=== PATIENT | male | born 1995 | race African-American/Black ===

== ENCOUNTER 2020-03-14 10:56 | Inpatient (IN) | payer OTHER ==
[~2020-03-14] VITALS: Ht 172.7 cm; Wt 63.0 kg
[2020-03-14] MEDS ORDERED: NOVOLIN INSULIN SQ (11:11)
[2020-03-14] MEDS ORDERED: PANTOPRAZOLE SODIUM 40 MG VIAL IV ONE (11:30)
[2020-03-14] MEDS ORDERED: IV NORMAL SALINE 1000 ML BAG IV ONE ×2 (11:30→14:15)
[2020-03-14] MEDS ORDERED: ONDANSETRON 4 MG/2 ML VIAL IV ONE ×2 (11:30→12:00)
[2020-03-14] MEDS ORDERED: PANTOPRAZOLE SODIUM 40 MG VIAL ONE (11:38)
[2020-03-14] MEDS ORDERED: ONDANSETRON 4 MG/2 ML VIAL ONE ×2 (11:38→11:55)
--- NOTE | 2020-03-14 11:40 | NUR ---
PT IS IN ROOM #2B. DR NGUYỄN EVALUATED THE PT.
[2020-03-14 11:49] LABS: BASOPHILS # (AUTO) 0.1 K/uL (0.0-8.0); BASOPHILS % (AUTO) 0.5 % (0.0-2.0); HEMATOCRIT 37.6 % (36.7-47.1); HEMOGLOBIN 12.9 g/dL (12.5-16.3); LYMPHOCYTES # (AUTO) 0.9 K/uL (20.0-40.0); LYMPHOCYTES % (AUTO) 8.2 % (20.5-51.5); MEAN CORPUSCULAR HGB CONC 34 g/dL (32.5-36.3); MEAN CORPUSCULAR VOLUME 90.2 fL (73.0-96.2); MONOCYTES # (AUTO) 0.3 K/uL (2.0-10.0); MONOCYTES % (AUTO) 2.4 % (0.0-11.0); NEUTROPHILS # (AUTO) 10.1 K/uL (1.8-8.9); NEUTROPHILS % (AUTO) 88.9 % (38.5-71.5); PLATELET COUNT (AUTO) 328 K/uL (152-348); RED BLOOD CELL COUNT(AUTO) 4.17 MIL/uL (4.06-5.63); WHITE BLOOD COUNT (AUTO) 11.4 K/uL (3.6-10.2)
[2020-03-14 11:56] LABS: CREATININE 1.3 mg/dL (0.6-1.3)
[2020-03-14 12:02] LABS: BILIRUBIN,DIRECT 0.3 mg/dL (0.0-0.2); BILIRUBIN,TOTAL 0.9 mg/dL (0.2-1.0); TOTAL PROTEIN, SERUM 9.2 g/dL (6.4-8.2)
[2020-03-14] MEDS ORDERED: diphenhydrAMINE 50 MG/1 ML VIAL IV ONE (14:15)
[2020-03-14] MEDS ORDERED: METOCLOPRAMIDE HCL 10 MG/2 ML VIAL IV ONE (14:15)
[2020-03-14] MEDS ORDERED: diphenhydrAMINE 50 MG/1 ML VIAL ONE (14:36)
[2020-03-14] MEDS ORDERED: METOCLOPRAMIDE HCL 10 MG/2 ML VIAL ONE (14:37)
--- NOTE | 2020-03-14 16:38 | NUR ---
REPORT WAS GIVEN TO RN M/S. PT WAS TRANSFERED TO ROOM #323.
--- NOTE | 2020-03-14 17:00 | NUR ---
patient was Admitted from ER via [facility] with Diagnosis of Intractable vomiting under Dr. Valladares. Patient is awake, alert and verbally responsive. No signs of distress noted. No SOB. No complain of pain or discomfort. No complain of nausea/vomiting at this time. kept clean and comfortable. kept the call light within easy reach. Will continue to monitor.
[2020-03-14 18:12] VITALS: BP 142/84
[2020-03-14] MEDS ORDERED: MORPHINE SULFATE 2 MG/1 ML DISP.SYRIN IV PRN (19:30)
[2020-03-14] MEDS ORDERED: ACETAMINOPHEN 325 MG TABLET PO PRN (19:30)
[2020-03-14] MEDS ORDERED: DEXTROSE 50% 50 ML DISP.SYRIN IV PRN (19:30)
--- NOTE | 2020-03-14 19:30 | NUR ---
Received patient awake, lying in bed, and verbally responsive. No s/s of acute distress noted at this time. Pt denies SOB, pain, and N/V. Left AC IV patent and intact. Safety measures in place and will continue to monitor.
[2020-03-14] MEDS: IV 1/2NS 1000 ML 1,000 ML IV PRN (20:16)
[2020-03-14] MEDS: BLOOD SUGAR DIAGNOSTIC 1 EACH STRIP VI SCH (20:16)
[2020-03-14 20:21] VITALS: BP 101/56
[2020-03-15 05:30] VITALS: BP 112/57
[2020-03-15] MEDS: PANTOPRAZOLE SODIUM 40 MG TABLET.DR PO SCH (06:26)
[2020-03-15] MEDS: BLOOD SUGAR DIAGNOSTIC 1 EACH STRIP VI SCH ×3 (06:38→16:47)
[2020-03-15 06:53] LABS: BILIRUBIN,TOTAL 1.4 mg/dL (0.2-1.0); CREATININE 1.7 mg/dL (0.6-1.3); PHOSPHOROUS 3.8 mg/dL (2.5-4.9); POTASSIUM 3.8 mmol/L (3.5-5.1); TOTAL PROTEIN, SERUM 7.7 g/dL (6.4-8.2)
[2020-03-15 07:12] LABS: HEMATOCRIT 34.4 % (36.7-47.1); HEMOGLOBIN 11.8 g/dL (12.5-16.3); MEAN CORPUSCULAR VOLUME 90.9 fL (73.0-96.2); RED BLOOD CELL COUNT(AUTO) 3.79 MIL/uL (4.06-5.63); WHITE BLOOD COUNT (AUTO) 10.5 K/uL (3.6-10.2)
[2020-03-15 07:13] LABS: BASOPHILS % (AUTO) 0.3 % (0.0-2.0); EOSINOPHILS % (AUTO) 0.2 % (0.0-7.0); LYMPHOCYTES # (AUTO) 2.1 K/uL (20.0-40.0); LYMPHOCYTES % (AUTO) 19.9 % (20.5-51.5); MEAN CORPUSCULAR HEMOGLOBIN 31.1 uug (23.8-33.4); MEAN CORPUSCULAR HGB CONC 34 g/dL (32.5-36.3); MONOCYTES # (AUTO) 0.7 K/uL (2.0-10.0); MONOCYTES % (AUTO) 6.7 % (0.0-11.0); NEUTROPHILS # (AUTO) 7.7 K/uL (1.8-8.9); NEUTROPHILS % (AUTO) 72.9 % (38.5-71.5); PLATELET COUNT (AUTO) 302 K/uL (152-348)
--- NOTE | 2020-03-15 07:15 | NUR ---
PATIENT LAYING IN BED. AWAKE, ALERT AND ORIENTED X4. ON RA, NO S/S OF DISTRESS OR SOB. IV ON LEFT AC 22 G, FLUSHED AND PATENT. SKIN INTACT. PATIENT DENIES NAUSEA AT THIS TIME. WILL CONTINUE TO MONITOR.
[2020-03-15] MEDS: INSULIN REGULAR, HUMAN 300 UNIT/3 ML VIAL SQ PRN ×3 (07:53→16:49)
[2020-03-15] MEDS: ONDANSETRON 4 MG/2 ML VIAL IV PRN ×2 (09:01→21:12)
--- NOTE | 2020-03-15 09:05 | NUR ---
PATIENT COMPLAINS OF SEVERE NAUSEA. TWO EPISODES OF EMESIS. PATIENT GIVEN ZOFRAN FOR NAUSEA.
[2020-03-15] MEDS: IV 1/2NS 1000 ML 1,000 ML IV PRN (10:02)
[2020-03-15 11:30] VITALS: BP 145/62
--- NOTE | 2020-03-15 12:23 | NUR ---
PATIENT COMPLAINS OF NAUSEA AND HAD ANOTHER EPISODE OF EMESIS - 100 CC OF DARK GREEN EMESIS. PATIENT UNABLE TO TOLERATE FOOD. NOTIFIED MD.
--- NOTE | 2020-03-15 12:40 | NUR ---
DR PRINGLE ORDERED CONTINUE CURRENT IV FLUIDS - 0.45 NS AT 70 CC/HR, AND CONTINUE INSULIN COVERAGE. PATIENT PLACED ON NPO PER MD ORDER.
[2020-03-15 16:00] VITALS: BP 109/67
--- NOTE | 2020-03-15 16:15 | NUR ---
PATIENT LAYING IN BED. VERBALIZE UNDERSTANDING OF NPO STATUS. DENIES ANY MORE EMESIS OR NAUSEA AT THIS TIME. WILL CONTINUE TO MONITOR.
[2020-03-15] MEDS: METOCLOPRAMIDE HCL 10 MG/2 ML VIAL IV PRN (17:18)
--- NOTE | 2020-03-15 17:27 | NUR ---
PATIENT COMPLAINS OF NAUSEA, NO EMESIS AT THIS TIME. GIVEN PRN NAUSEA MEDICATION. PATIENT ADVISED TO KEEP LEFT ARM EXTENDED FOR IV POSITIONING D/T IV PUMP NOTING IV OCCLUSION. IV PATENT AND FLUSHING.
--- NOTE | 2020-03-15 18:30 | NUR ---
PATIENT'S IV DISLODGED. PATIENT REQUESTED FOR ANOTHER SHOWER. PATIENT HAD A SHOWER THIS MORNING, BUT STILL WALKED HIMSELF TO THE SHOWER UNACCOMPANIED. PATIENT AAOX4, WITH STEADY GAIT. UNABLE TO RESTART IV. WILL ENDORSE TO PM SHIFT.
--- NOTE | 2020-03-15 19:30 | NUR ---
Received patient lying in bed under the covers. AAOx4. No s/s of acute distress noted at this time. Patient denied SOB and pain. Pt c/o nausea and will administer medication per orders. Safety measures in place and will continue to monitor.
[2020-03-15 20:00] VITALS: BP 143/76
[2020-03-15] MEDS ORDERED: DEXTROSE 50% 50 ML DISP.SYRIN IV PRN (21:15)
[2020-03-16] VITALS: BP 150/86
[2020-03-16 00:11] VITALS: BP 148/79
[2020-03-16] MEDS: BLOOD SUGAR DIAGNOSTIC 1 EACH STRIP VI SCH ×3 (00:13→12:10)
[2020-03-16] MEDS: INSULIN REGULAR, HUMAN 300 UNIT/3 ML VIAL SQ PRN ×3 (00:18→12:11)
[2020-03-16] MEDS ORDERED: PROCHLORPERAZINE EDISYLATE 10 MG/2 ML VIAL IV ONE (02:00)
--- NOTE | 2020-03-16 02:00 | NUR ---
Pt c/o hiccups that have not resolved with non-pharmacological attempts. Spoke with Dr. Russo and placed one time order for Compazine. Will administer and continue to monitor. Addendum: 03/16/20 at 0612 by ROSA BILL RN Pt refused med. Stated hiccups subsided and no longer needed medication for it
[2020-03-16] MEDS ORDERED: PROCHLORPERAZINE EDISYLATE 10 MG/2 ML VIAL ONE (02:19)
[2020-03-16 04:00] VITALS: BP 129/60
[2020-03-16] MEDS: ONDANSETRON 4 MG/2 ML VIAL IV PRN (04:48)
[2020-03-16] MEDS: PANTOPRAZOLE SODIUM 40 MG TABLET.DR PO SCH (06:00)
[2020-03-16] MEDS: METOCLOPRAMIDE HCL 10 MG/2 ML VIAL IV PRN (06:00)
[2020-03-16 07:10] LABS: BASOPHILS % (AUTO) 0.1 % (0.0-2.0); HEMATOCRIT 36.6 % (36.7-47.1); HEMOGLOBIN 12.4 g/dL (12.5-16.3); LYMPHOCYTES # (AUTO) 1.6 K/uL (20.0-40.0); LYMPHOCYTES % (AUTO) 11.2 % (20.5-51.5); MEAN CORPUSCULAR HEMOGLOBIN 30.8 uug (23.8-33.4); MEAN CORPUSCULAR HGB CONC 34 g/dL (32.5-36.3); MEAN CORPUSCULAR VOLUME 90.9 fL (73.0-96.2); MONOCYTES % (AUTO) 6.8 % (0.0-11.0); NEUTROPHILS # (AUTO) 11.6 K/uL (1.8-8.9); NEUTROPHILS % (AUTO) 81.9 % (38.5-71.5); PLATELET COUNT (AUTO) 322 K/uL (152-348); RED BLOOD CELL COUNT(AUTO) 4.02 MIL/uL (4.06-5.63); WHITE BLOOD COUNT (AUTO) 14.1 K/uL (3.6-10.2)
[2020-03-16 07:33] LABS: BILIRUBIN,TOTAL 1.9 mg/dL (0.2-1.0); CREATININE 1.7 mg/dL (0.6-1.3); MAGNESIUM 2.2 mg/dL (1.8-2.4); PHOSPHOROUS 5.4 mg/dL (2.5-4.9); POTASSIUM 3.7 mmol/L (3.5-5.1); TOTAL PROTEIN, SERUM 8.6 g/dL (6.4-8.2)
--- NOTE | 2020-03-16 10:00 | NUR ---
Pt very persistent that he's feeling better and can tolerate water. Insisted on getting water. Informed Dr. Valladares, and ordered for full liquid diet. Will give water and monitor tolerance. Pt asleep at this time
[2020-03-16] MEDS: IV 1/2NS 1000 ML 1,000 ML IV PRN (11:34)
[2020-03-16 15:43] VITALS: BP 133/81
--- NOTE | 2020-03-16 15:55 | NUR ---
Change of AMA time- Pt left AMA, explained risks and benefits, verbalized understanding. Pt signed AMA form and belongings list, all accounted for. Pt left unit ambulatory and picked up by friend via private car. AOx4, on RA denied SOB or distress at this time. Per pt, tolerated full liquid lunch earlier with no nausea and vomiting. Removed IV on right FA, no bleeding. made aware
== END 2020-03-16 15:55 | disposition left against medical advice (07) | DRG 249 ==
LOC: ER 10:56 → MEDSURG3 15:32
PROVIDERS: ADMIT Internal Medicine; ATTEND Internal Medicine
DX: A08.4 Viral intestinal infection, unspecified (principal); E11.65 Type 2 diabetes mellitus with hyperglycemia; Z79.4 Long term (current) use of insulin; F99 Mental disorder, not otherwise specified; Z91.14 Patient's other noncompliance with medication regimen; N17.0 Acute kidney failure with tubular necrosis
CPT/HCPCS: 36415; 70030-TC; 83690; 83735; 84100; 85025; 93005; A4663; C9113; G0378; J0780; J1200; J1815; J2405; J2765; J3490; J7030

== ENCOUNTER 2021-02-20 12:52 | Inpatient (IN) | payer OTHER ==
[~2021-02-20] VITALS: Ht 157.5 cm; Wt 68.5 kg
[~2021-02-20 12:52] MED LIST: NOVOLIN INSULIN SQ
[2021-02-20] MEDS ORDERED: IV NORMAL SALINE 1000 ML BAG IV ONE ×2 (13:30→14:45)
[2021-02-20 14:14] LABS: HEMATOCRIT 36.8 % (36.7-47.1); MEAN CORPUSCULAR HEMOGLOBIN 31.3 uug (23.8-33.4); MEAN CORPUSCULAR VOLUME 90.5 fL (73.0-96.2); PLATELET COUNT (AUTO) 301 K/uL (152-348)
[2021-02-20] MEDS ORDERED: ONDANSETRON 4 MG/2 ML VIAL ONE (14:14)
[2021-02-20] MEDS ORDERED: ONDANSETRON 4 MG/2 ML VIAL IV ONE (14:15)
--- NOTE | 2021-02-20 14:26 | NUR ---
Patient is resting comfortably on gurney with eyes closed,, pending urine specimen and blood tests' results.
[2021-02-20 14:28] LABS: BILIRUBIN,DIRECT 0.3 mg/dL (0.0-0.2); BILIRUBIN,TOTAL 1.2 mg/dL (0.2-1.0); CREATININE 1.9 mg/dL (0.6-1.3); POTASSIUM 3.7 mmol/L (3.5-5.1); TOTAL PROTEIN, SERUM 9.8 g/dL (6.4-8.2)
[2021-02-20] MEDS ORDERED: INSULIN REGULAR, HUMAN 300 UNIT/3 ML VIAL SQ ONE (14:45)
[2021-02-20] MEDS ORDERED: INSULIN REGULAR, HUMAN 300 UNIT/3 ML VIAL ONE (14:49)
[2021-02-20] MEDS ORDERED: DEXTROSE 50% 50 ML DISP.SYRIN ONE (17:05)
--- NOTE | 2021-02-20 17:19 | NUR ---
Patient is resting comfortably on gurney with his black hoodie sweater over his face. No vomiting seen since IV Zofran was given. Patient denies nausea and said that he feels better. PATIENT IS PAIN FREE AT THIS TIME. Per Dr Laguna, this patient is for admission to telemetry secondary to his acute kidney injury.
[2021-02-20] MEDS ORDERED: DEXTROSE 50% 50 ML DISP.SYRIN IV ONE (17:30)
--- NOTE | 2021-02-20 17:56 | NUR ---
Patient will go to 3rd floor telemetry as soon as the COVID test is resulted.
[2021-02-20 18:15] VITALS: BP 144/74
[2021-02-20] MEDS ORDERED: DEXTROSE 50% 50 ML DISP.SYRIN IV PRN (20:00)
[2021-02-20] MEDS ORDERED: INSULIN REGULAR, HUMAN 300 UNITS/3 ML VIAL SQ PRN (20:00)
[2021-02-20] MEDS ORDERED: INSULIN REGULAR, HUMAN 300 UNIT/3 ML VIAL SQ PRN (20:00)
[2021-02-20] MEDS ORDERED: Z GUARD REMEDY PASTE 57 GM TUBE TOP PRN (20:00)
[2021-02-20] MEDS ORDERED: ZOLPIDEM 5 MG TABLET PO PRN (20:00)
[2021-02-20] MEDS ORDERED: ACETAMINOPHEN 325 MG TABLET PO PRN (20:00)
[2021-02-20] MEDS ORDERED: MAGNESIUM HYDROXIDE 30 ML LIQUID UDC PO PRN (20:00)
[2021-02-20 20:03] VITALS: BP 131/71
[2021-02-20] MEDS: ONDANSETRON 4 MG/2 ML VIAL IV PRN (20:52)
[2021-02-20] MEDS: BLOOD SUGAR DIAGNOSTIC 1 EACH STRIP VI SCH (20:54)
--- NOTE | 2021-02-20 21:00 | NUR ---
PATIENT ALERT ORIENTED, NO SOB NO CHEST PAIN PATIENT ON TELE MONITOR SINUS RHYTHM AT THIS TIME. PATIENT DRANK CRANBERRY JUICE BUT VOMIT IT. PATIENT GIVEN ZOFRAN VIA IV, DENIES PAIN, REFUSED TO EAT ANYTHING NOW, CONT TO MONITOR.
[2021-02-20] MEDS: IV 1/2NS 1000 ML 1,000 ML IV PRN (21:14)
[2021-02-21] VITALS: BP 143/94
--- NOTE | 2021-02-21 02:03 | NUR ---
PATIENT WAS INSTRUCTED NOT DRINK FLUIDS AT THIS TIME, DUE TO EPISODE OF VOMITING AGAIN APPROX 300CC, PATIENT IV HYDRATION TOLERATE WELL, WILL MEDICATED AGAIN FOR VOMITING. CONT TO MONITOR.
[2021-02-21] MEDS: ONDANSETRON 4 MG/2 ML VIAL IV PRN ×3 (03:32→23:10)
[2021-02-21 04:05] VITALS: BP 136/75
[2021-02-21] MEDS: IV 1/2NS 1000 ML 1,000 ML IV PRN (04:26)
[2021-02-21] MEDS: PANTOPRAZOLE SODIUM 40 MG TABLET.DR PO SCH (06:03)
[2021-02-21] MEDS: BLOOD SUGAR DIAGNOSTIC 1 EACH STRIP VI SCH ×5 (06:17→23:10)
--- NOTE | 2021-02-21 06:17 | NUR ---
PATIENT STILL HAS EPISODE OF VOMITING BROWNISH COLOR FLUIDS IN MODERATE AMOUNT, CONT TO INSTRUCT TO NOT TAKE ANYTHING AT THIS TIME. PATIENT GIVEN ZOFRAN IV WITH EFFECTIVE RESULTS, PATIENT TOLERATE LITTLE SIPS OF WATER TAKE A PILLL
[2021-02-21 09:30] LABS: MEAN CORPUSCULAR HEMOGLOBIN 31.4 uug (23.8-33.4); MEAN CORPUSCULAR VOLUME 92.5 fL (73.0-96.2); PLATELET COUNT (AUTO) 279 K/uL (152-348)
[2021-02-21 09:50] LABS: CREATININE 2.5 mg/dL (0.6-1.3); PHOSPHOROUS 5.1 mg/dL (2.5-4.9); POTASSIUM 3.5 mmol/L (3.5-5.1)
[2021-02-21 10:32] LABS: THYROID STIMULATING HORMONE 1.021 mIU/mL (0.358-3.740)
[2021-02-21 11:17] VITALS: BP 134/85
--- NOTE | 2021-02-21 11:30 | NUR ---
DR FIGUEREDO NOTIFIED OF VOMITING EPISODES X 2 DURING SHIFT SO FAR. FIRST EPISODE AT 0740, BREAKFAST HELD. AT 1030, ZOFRAN 4 MG IV PUSH GIVEN, AND PO TRIAL DONE WITH WATER, BUT PATIENT HAD ANOTHER EPISODE OF VOMITING JUST NOW. RECEIVED ORDERS FOR NPO/CHANGE FLUIDS TO D5 1/2 NS/CHANGE REGULAR INSULIN SLIDING SCALE TO Q6H. ALSO NOTIFIED ABOUT URINE TESTS ORDERED BY NEPHRO TEAM, SHE AGREED TO ADD URINE DRUG SCREEN.
[2021-02-21 11:40] LABS: *BILIRUBIN,URIN 1+ (NEGATIVE); *BLOOD, URINE 2+ (NEGATIVE); *COLOR,URINE YELLOW (YELLOW); *KETONES,URINE 3+ (NEGATIVE); *UROBILINOGEN,URINE 0.2 E.U./dl (NORMAL); LEUKOCYTE ESTERASE ,URINE NEGATIVE (NEGATIVE); NITRITE, URINE NEGATIVE (NEGATIVE); UGLUCOSE 2+ (NEGATIVE)
[2021-02-21] MEDS ORDERED: DEXTROSE 50% 50 ML DISP.SYRIN IV PRN (12:15)
[2021-02-21 12:25] LABS: *AMPHETAMINE, URINE NEGATIVE (NEGATIVE); *CANNABINOID, URINE POSITIVE (NEGATIVE); *COCCAINE, URINE NEGATIVE (NEGATIVE); *OPIATE, URINE NEGATIVE (NEGATIVE); *PHENCYCLIDINE SCREEN,URINE NEGATIVE (NEGATIVE)
[2021-02-21] MEDS: IV D5 1/2 NS 1000 ML 1,000 ML IV PRN ×2 (12:34→22:00)
[2021-02-21] MEDS: INSULIN REGULAR, HUMAN 300 UNIT/3 ML VIAL SQ PRN ×3 (12:46→23:18)
--- NOTE | 2021-02-21 13:00 | NUR ---
DR FIGUEREDO AT BEDSIDE FOR EVALUATION. SHE IS AWARE OF BLOOD SUGAR OF 415 AT NOON. COVERED WITH REGULAR INSULIN OF 15 UNITS SUBQ ORDERED. NO OTHER ORDERS. D5 1/2 NS 125CC/HR.
[2021-02-21 14:34] LABS: *CREATININE,URINE 164.6 mg/dL (30-125)
[2021-02-21 14:35] LABS: *URINE TOTAL PROTEIN RANDOM 102.9 mg/dL (<150/24HR)
[2021-02-21 15:12] LABS: *CLARITY,URINE SLIGHTLY HAZY (CLEAR); BACTERIA,URINE FEW /HPF (NONE SEEN); SQUAMOUS EPITHELIAL CELL,UR FEW /HPF (NONE SEEN)
[2021-02-21 15:46] VITALS: BP 131/68
--- NOTE | 2021-02-21 19:00 | NUR ---
ALERT ORIENTED, NO SOB NO CHEST PAIN, SINUS RHYTHM SINUS TACHY. REMAINS NPO, CONT TO MONITOR EPISODES OF VOMITING.
[2021-02-21 20:10] VITALS: BP 153/90
[2021-02-22] VITALS: BP 117/69
[2021-02-22 04:10] VITALS: BP 122/70
[2021-02-22 06:19] LABS: HEMATOCRIT 34.3 % (36.7-47.1); MEAN CORPUSCULAR VOLUME 91.6 fL (73.0-96.2); PLATELET COUNT (AUTO) 276 K/uL (152-348)
[2021-02-22] MEDS: PANTOPRAZOLE SODIUM 40 MG TABLET.DR PO SCH (06:28)
[2021-02-22] MEDS: BLOOD SUGAR DIAGNOSTIC 1 EACH STRIP VI SCH ×3 (06:28→17:23)
[2021-02-22] MEDS: INSULIN REGULAR, HUMAN 300 UNIT/3 ML VIAL SQ PRN ×3 (06:29→17:36)
[2021-02-22 06:39] LABS: BILIRUBIN,TOTAL 1.4 mg/dL (0.2-1.0); CREATININE 2.2 mg/dL (0.6-1.3); POTASSIUM 3.5 mmol/L (3.5-5.1); TOTAL PROTEIN, SERUM 7.8 g/dL (6.4-8.2)
--- NOTE | 2021-02-22 06:56 | NUR ---
PATIENT REMAINS NPO, BLOOD SUGAR CHECK DONE, BS STILL ELEVATED. PATIENT STILL HAVE EPISODE OF VOMITING, APPROX 200CC, CLEAR BROWN COLOR LIQUIDS, TELE MONITOR SINUS RYTHM SINUS TACHY.
[2021-02-22] MEDS: IV D5 1/2 NS 1000 ML 1,000 ML IV PRN ×2 (07:16→22:00)
--- NOTE | 2021-02-22 08:00 | NUR ---
RECEIVED PATIENT IN BED ASLEEP BUT EASILY AROUSABLE ON ROUNDS HE IS ALERT AND ORIENTED DENIES PAIN OR DISCOMFORTS AT THIS TIME REMAIN ON IVF ORDERED WITH NO S/S OF INFILTERATION ON SITE REMAIN NOTHING BY MOUTH ORDERED REINSTRUCTED CALL LIGHTS AND HIS PERSONAL ARE WITHIN EASY REACH AT THIS TIME WILL CONTINUE TO OBSERVE.
--- NOTE | 2021-02-22 11:00 | NUR ---
PATIENT DISCONNECTED HIS IV AND REMOVED HIS HEPLOCK HIMSELF WITHOUT ASKING THE NURSE WAS FOUND IN THE SHOWER ROOM TAKING SHOWER REINFORCED THAT HE NEEDED TO ASK THE NUSE TO DISCONNECT HIM IN THE FUTURE TO ENSURE ASEPTIC TECHNIQUE IN DISCONNECTING HIS IV TO PREVENT INFECTION AND HE EXPRESSED UNDERSTANDING.
[2021-02-22 11:40] VITALS: BP 136/91
[2021-02-22] MEDS: ONDANSETRON 4 MG/2 ML VIAL IV PRN ×2 (13:20→23:49)
[2021-02-22 15:08] VITALS: BP 155/98
--- NOTE | 2021-02-22 16:30 | NUR ---
IV SITE INFILTERATED REINSERTED TO HIS RIGHT WRIST VERY HARD STICK PATIENT INSTRUCTED TO REFRAIN FROM DISCONNECTING HIS IV TO AVOID INFILTERATION PROBLEMS AND HE EXPRESSED UNDERSTANDING.
--- NOTE | 2021-02-22 18:01 | NUR ---
RESTING IN BED SEEN ONE EPISODE OF EMESIS BUT HE STATED THAT HE VOMITED 2 TIMES I DID NOT SEE THE SECOND ONE AND WAS NOT NOTIFIED UNTIL 1320 DURING HIS SECOND EMESIS AND I MEDICATED HIM WITH ZOFRAN ORDERED.
[2021-02-22 20:00] VITALS: BP 184/118
[2021-02-22] MEDS: METOCLOPRAMIDE HCL 10 MG/2 ML VIAL IV PRN (20:02)
[2021-02-22] MEDS: hydrALAZINE HCL 20 MG/1 ML VIAL IV PRN (20:04)
[2021-02-22 21:15] VITALS: BP 155/65
--- NOTE | 2021-02-22 22:30 | NUR ---
pt's bp elevated referred to Dr Walsh and ordered hydralazineIV push; she also ordered Reglan IVP if zofran not effective.
[2021-02-23] VITALS: BP 162/91
--- NOTE | 2021-02-23 00:15 | NUR ---
pt's blood sugar was 510; stat glucose 579; referred to DR Sethi; he changed Regular Insulin from moderate scale to aggressive scale and added Lantus 16 units; pt will continue his IVF with dextrose per Dr Sethi;
[2021-02-23] MEDS ORDERED: INSULIN GLARGINE,HUM 300 UNITS/3 ML CARTRIDGE SQ SCH ×2 (00:30→21:00)
[2021-02-23] MEDS ORDERED: DEXTROSE 50% 50 ML DISP.SYRIN IV PRN ×2 (00:30→17:00)
[2021-02-23 01:00] VITALS: BP 158/89
[2021-02-23] MEDS ORDERED: INSULIN GLARGINE,HUM 300 UNITS/3 ML CARTRIDGE SQ ONE (01:30)
[2021-02-23 04:00] VITALS: BP 128/75
[2021-02-23] MEDS: INSULIN REGULAR, HUMAN 300 UNIT/3 ML VIAL SQ PRN ×3 (06:02→20:36)
[2021-02-23] MEDS: BLOOD SUGAR DIAGNOSTIC 1 EACH STRIP VI SCH ×5 (06:03→20:40)
[2021-02-23] MEDS: PANTOPRAZOLE SODIUM 40 MG TABLET.DR PO SCH (06:17)
[2021-02-23 06:33] LABS: HEMATOCRIT 35.8 % (36.7-47.1); MEAN CORPUSCULAR HEMOGLOBIN 30.8 uug (23.8-33.4); MEAN CORPUSCULAR VOLUME 90.5 fL (73.0-96.2); PLATELET COUNT (AUTO) 281 K/uL (152-348)
[2021-02-23 06:42] LABS: CREATININE 2.1 mg/dL (0.6-1.3); PHOSPHOROUS 3.7 mg/dL (2.5-4.9); POTASSIUM 3.4 mmol/L (3.5-5.1)
[2021-02-23] MEDS: METOCLOPRAMIDE HCL 10 MG/2 ML VIAL IV PRN ×2 (08:34→18:26)
--- NOTE | 2021-02-23 08:35 | NUR ---
RECEIVED PATIENT IN BED AWAKE ALERT AND ORIENTED CONTINUES TO C/O NAUSEA MEDICATED WITH REGLAN ORDERED AT THIS TIME.REMAIN ON IVF WITH NO S/S OF INFILTERATION ON SITE NO S/S OF HYPO/HYPERGLYCEMIC REACTIONS AT THIS TIME PATIENT REMAINS NPO REINSTRUCTED AND EXPRESSED UNDERSTANDING.CALL LIGHTS AND HIS PERSONAL BELONGINGS ARE WITHIN EASY REACH MADE COMFORTABLE WILL CONTINUE TO OBSERVE.
[2021-02-23] MEDS: IV D5 1/2 NS 1000 ML 1,000 ML IV PRN (10:50)
[2021-02-23 11:14] VITALS: BP 135/87
[2021-02-23] MEDS: POTASSIUM CHLORIDE 50 ML IV SCH ×2 (13:32→15:03)
--- NOTE | 2021-02-23 13:44 | NUR ---
MID LINE GAUGE 18 PLACED TO HIS RIGHT UPPER ARM ORDERED POTASSIUM REPLACEMENT IN PROGRESS ORDERED LEVEL IS 3.4
[2021-02-23 15:59] VITALS: BP 173/100
[2021-02-23] MEDS: hydrALAZINE HCL 20 MG/1 ML VIAL IV PRN (16:24)
--- NOTE | 2021-02-23 16:59 | NUR ---
PATIENT SEEN AND EXAMINED BY DR CAPUTO WITH NEW ORDERS AND NOTED.
[2021-02-23] MEDS ORDERED: INSULIN REGULAR, HUMAN 300 UNITS/3 ML VIAL SQ PRN (17:00)
[2021-02-23] MEDS: IV LACTATED RINGERS SOLUTION 1,000 ML IV PRN ×2 (17:04→20:30)
--- NOTE | 2021-02-23 18:34 | NUR ---
PATIENT HAS BEEN IN THE SHOWER FOR AN HOUR AND A HALF AND NOR FINALLY IN HIS ROOM AND IVF CONNECTED REGLAN GIVEN HE STATED HIS STOMACH IS ACHING AND DOES NOT FEEL GOOD WILL CONTINUE TO OBSERVE.
[2021-02-23 20:00] VITALS: BP 141/93
--- NOTE | 2021-02-23 21:00 | NUR ---
PATIENT ALERT ORIENTED, NO SOB NO CHEST PAIN, NO EPISODE OF VOMITING AT THIS TIME, OFFERED LIQUID FOOD BUT REFUSED, PATIENT HAS EPISODE OF SHAKING FOR FEW SECONDS, BUT ITS A CONTROLLED ONE AND RESTLESS IN BED, CONT TO MONITOR.
--- NOTE | 2021-02-23 23:53 | NUR ---
PATIENT HAS BEEN IN THE SHOWER FOR HOURS, ENCOURAGE PATIENT TO SHORTEN HIS SHOWER BECAUSE OF THE IV HYDRATION, AND WE DON'T WANT HIS SUGAR TO DROP, DUE TO NPH INSULIN. PATIENT R UPPER ARM MIDLINE CLOGGED UNABLE TO FLUSH. INSERTED NEW IV LINE. INSTRUCTED PATIENT TO TAKE THE IV SITE CAUSE WE DON'T WANT TO DISLOGE THIS ONE AGAIN.
[2021-02-24] VITALS: BP 142/90
[2021-02-24 04:00] VITALS: BP 155/70
[2021-02-24] MEDS: IV LACTATED RINGERS SOLUTION 1,000 ML IV PRN (04:57)
--- NOTE | 2021-02-24 05:57 | NUR ---
PATIENT ALERT ORIENTED, NO SOB NO CHEST PAIN, TELE MONITOR SINUS RHYTHM SINUS TACHY. PATIENT HAS NO COMPLAIN OF PAIN, PATIENT BLOOD SUGAR WAS 29 GIVEN IV DEXTROSE , RECHECK SUGAR 120. PATIENT IV MIDLINE IS CLOGGED AGAIN, ABLE TO REINSERT PERIPHERAL IV ON LEFT HAND. PATIENT REQUESTING TO SHOWER, STATING IT HIM FEEL GOOD, EXPLAINED THAT IV WILL BE DISLODGED AGAIN OR WILL NOT WORK DUE TO HE TOOK LONG SHOWER AND DUE TO VENDING HIS ARMS. PATIENT UNCOOPERATIVE WITH CARE, DONT WANT TO LISTEN. NOTIFY CHARGE NURSE.
[2021-02-24] MEDS: PANTOPRAZOLE SODIUM 40 MG TABLET.DR PO SCH (06:12)
[2021-02-24] MEDS: BLOOD SUGAR DIAGNOSTIC 1 EACH STRIP VI SCH ×2 (06:13→11:44)
[2021-02-24 06:38] LABS: HEMATOCRIT 34.1 % (36.7-47.1); MEAN CORPUSCULAR HEMOGLOBIN 31.5 uug (23.8-33.4); MEAN CORPUSCULAR VOLUME 90.6 fL (73.0-96.2); PLATELET COUNT (AUTO) 263 K/uL (152-348)
[2021-02-24 06:56] LABS: CREATININE 1.7 mg/dL (0.6-1.3); PHOSPHOROUS 3.7 mg/dL (2.5-4.9)
[2021-02-24 06:57] LABS: POTASSIUM 2.8 mmol/L (3.5-5.1)
--- NOTE | 2021-02-24 08:00 | NUR ---
PT IN BED RESTING, ON ROOM AIR, NO SIGNS OF DISTRESS, NO REPORTS OF PAIN. PT AMBULATORY, BRP, PT STATES "HOT SHOWERS HELP WITH THE REFLUX". PT ON TELE MONITOR, SINUS TACHY, CALL LIGHT WITHIN REACH, BED LOW AND LOCKED, WILL CONTINUE TO MONITOR.
[2021-02-24] MEDS ORDERED: METO-295 PO (08:28)
[2021-02-24] MEDS ORDERED: POTASSIUM CHLORIDE 20 MEQ TAB.PRT.SR PO ONE (08:30)
[2021-02-24] MEDS ORDERED: hydrALAZINE HCL 20 MG/1 ML VIAL IV PRN (08:30)
[2021-02-24] MEDS ORDERED: IV NS 1000 ML 1,000 ML IV ONE (08:45)
[2021-02-24] MEDS: POTASSIUM CHLORIDE 50 ML IV SCH ×2 (09:20→11:11)
--- NOTE | 2021-02-24 09:30 | NUR ---
DC tele monitor per MD order. will continue with plan of care.
--- NOTE | 2021-02-24 10:00 | NUR ---
SPOKE WITH MOM VIA FACETIME, GAVE UPDATES, PT MAIN C/O ACID REFLUX WITH A LOT OF DISCOMFORT, MADE AWARE. WILL FOLLOW THROUGH WITH ORDERS.
[2021-02-24] MEDS ORDERED: PANT40TA2 PO (11:06)
[2021-02-24] MEDS ORDERED: CALCIUM CARBONATE 500 MG TAB.CHEW PO ONE (11:15)
[2021-02-24 11:17] VITALS: BP 173/101
[2021-02-24] MEDS: INSULIN REGULAR, HUMAN 300 UNIT/3 ML VIAL SQ PRN (12:02)
[2021-02-24] MEDS ORDERED: SUCR1ORA PO (12:02)
--- NOTE | 2021-02-24 13:24 | NUR ---
PT DC'D HOME WITH ALL BELONGINGS, PAPERWORK IN HAND. DISCHARGE INSTRUCTIONS AND EDUCATION GIVEN TO PT. PT AMBULATORY, ESCORTED DOWN TO CAR BY NURSE. PT VITALS WNL, ON ROOM AIR, NO SIGNS OF DISTRESS, NO REPORTS OF PAIN, PT GIVEN PRESCRIPTION. ALL EXIT CARE INSTRUCTIONS GIVEN, PT VERBALIZED UNDERSTANDING.
== END 2021-02-24 13:25 | disposition home or self-care (01) | DRG 48 ==
LOC: ER 12:54 → TELE3 17:13 → MEDSURG3 02-24 08:45
PROVIDERS: ADMIT Student in an Organized Health Care Education/Training Program; ATTEND Registered Nurse
PROC: B546ZZA Ultrasonography of Right Subclavian Vein, Guidance (ICD-10-PCS; principal; 2021-02-23)
PROC: 05H533Z Insertion of Infusion Device into Right Subclavian Vein, Percutaneous Approach (ICD-10-PCS; principal; 2021-02-23)
DX: E11.43 Type 2 diabetes mellitus with diabetic autonomic (poly)neuropathy (principal); N17.0 Acute kidney failure with tubular necrosis; E87.0 Hyperosmolality and hypernatremia; E83.39 Other disorders of phosphorus metabolism; E11.65 Type 2 diabetes mellitus with hyperglycemia; D72.829 Elevated white blood cell count, unspecified; K31.84 Gastroparesis; E83.52 Hypercalcemia; E86.0 Dehydration; Z20.822 Contact with and (suspected) exposure to COVID-19; Z91.19 Patient's noncompliance with other medical treatment and regimen; Z79.4 Long term (current) use of insulin
CPT/HCPCS: 36415; 71045; 74018; 76770; 83605; 83690; 84100; 84156; 84300; 84443; 85025; A4663; G0378; J0360; J1815; J2405; J2765; J3480; J3490; J7030; J7120

== ENCOUNTER 2021-08-21 13:33 | Inpatient (IN) | payer OTHER ==
[~2021-08-21] VITALS: Ht 172.7 cm; Wt 59.0 kg
[~2021-08-21 13:33] MED LIST changes: +METO-295 PO; +PANT40TA2 PO; +SUCR1ORA PO
[2021-08-21 15:27] LABS: HEMATOCRIT 47.4 % (36.7-47.1); MEAN CORPUSCULAR HEMOGLOBIN 30.5 uug (23.8-33.4); MEAN CORPUSCULAR VOLUME 91.8 fL (73.0-96.2); PLATELET COUNT (AUTO) 282 K/uL (152-348)
[2021-08-21 15:43] LABS: CARBON DIOXIDE 29 mmol/L (21-32); CHLORIDE 87 mmol/L (98-107); CREATININE 5.7 mg/dL (0.6-1.3); POTASSIUM 3.9 mmol/L (3.5-5.1); UREA NITROGEN, BLOOD 59 mg/dL (7-18)
[2021-08-21 16:08] LABS: *BILIRUBIN,URIN 1+ (NEGATIVE); *BLOOD, URINE 2+ (NEGATIVE); *CLARITY,URINE TURBID (CLEAR); *COLOR,URINE YELLOW (YELLOW); *KETONES,URINE TRACE (NEGATIVE); *UROBILINOGEN,URINE 0.2 E.U./dl (NORMAL); LEUKOCYTE ESTERASE ,URINE NEGATIVE (NEGATIVE); NITRITE, URINE NEGATIVE (NEGATIVE); UGLUCOSE 3+ (NEGATIVE)
[2021-08-21 16:16] LABS: ALANINE AMINOTRANSFERASE 36 U/L (16-63); ALKALINE PHOSPHATASE 137 U/L (50-136); ASPARTATE AMINOTRANSFERASE 50 U/L (15-37); BILIRUBIN,DIRECT 0.3 mg/dL (0.0-0.2); BILIRUBIN,TOTAL 1.4 mg/dL (0.2-1.0); LIPASE 38 U/L (73-393); TOTAL PROTEIN, SERUM 10.8 g/dL (6.4-8.2)
[2021-08-21 16:25] LABS: GLUCOSE 603 mg/dL (74-106)
[2021-08-21 16:31] LABS: COARSE GRANULAR CASTS,URINE 0-3 /LPF
[2021-08-21 16:36] LABS: CALCIUM OXALATE CRYSTALS,UR MODERATE /HPF (NONE SEEN)
[2021-08-21 16:37] LABS: BACTERIA,URINE FEW /HPF (NONE SEEN); SQUAMOUS EPITHELIAL CELL,UR FEW /HPF (NONE SEEN); URINE AMORPHOUS URATE MODERATE /HPF
[2021-08-21 16:38] LABS: MUCUS,URINE FEW /LPF (0-FEW)
[2021-08-21] MEDS ORDERED: IV NS 1000 ML 1,000 ML IV ONE (16:45)
[2021-08-21] MEDS ORDERED: INSULIN REGULAR, HUMAN 300 UNIT/3 ML VIAL IV ONE (16:45)
[2021-08-21] MEDS ORDERED: ACETAMINOPHEN 325 MG TABLET PO PRN (19:15)
[2021-08-21] MEDS ORDERED: INSULIN REGULAR, HUMAN 300 UNIT/3 ML VIAL SQ PRN (19:15)
[2021-08-21] MEDS ORDERED: DEXTROSE 50% 50 ML DISP.SYRIN IV PRN (19:15)
[2021-08-21] MEDS ORDERED: MAGNESIUM HYDROXIDE 30 ML LIQUID UDC PO PRN (19:15)
[2021-08-21] MEDS ORDERED: REMEDY ESSENTIAL ZINC PASTE 113 GM TP PRN (19:15)
[2021-08-21] MEDS: IV NS 1000 ML 1,000 ML IV SCH (22:58)
[2021-08-21 23:00] VITALS: BP 156/84
[2021-08-21] MEDS: INSULIN GLARGINE,HUM 300 UNITS/3 ML CARTRIDGE SQ SCH (23:27)
[2021-08-22] MEDS ORDERED: INSULIN REGULAR, HUMAN 300 UNIT/3 ML VIAL SQ PRN (02:30)
[2021-08-22] MEDS ORDERED: DEXTROSE 50% 50 ML DISP.SYRIN IV PRN ×2 (02:30→11:30)
[2021-08-22] MEDS: IV NS 1000 ML 1,000 ML IV SCH ×4 (03:58→21:02)
[2021-08-22 04:00] VITALS: BP 155/80
[2021-08-22] MEDS ORDERED: BLOOD SUGAR DIAGNOSTIC 1 EACH STRIP VI SCH ×2 (06:00)
[2021-08-22 06:51] LABS: HEMATOCRIT 39.4 % (36.7-47.1); MEAN CORPUSCULAR HEMOGLOBIN 30.2 uug (23.8-33.4); MEAN CORPUSCULAR VOLUME 90.1 fL (73.0-96.2); PLATELET COUNT (AUTO) 280 K/uL (152-348)
[2021-08-22 07:25] LABS: CREATININE 3.8 mg/dL (0.6-1.3); MAGNESIUM 2.2 mg/dL (1.8-2.4); PHOSPHOROUS 6.2 mg/dL (2.5-4.9); POTASSIUM 3.8 mmol/L (3.5-5.1)
[2021-08-22] MEDS ORDERED: SUCRALFATE 1 G/10 ML LIQUID UDC PO SCH ×2 (09:00)
[2021-08-22] MEDS ORDERED: INSULIN REGULAR, HUMAN 300 UNITS/3 ML VIAL SQ PRN (11:30)
[2021-08-22] MEDS: BLOOD SUGAR DIAGNOSTIC 1 EACH STRIP VI SCH ×3 (11:43→20:57)
[2021-08-22 12:00] VITALS: BP 134/85
[2021-08-22] MEDS: METOPROLOL TARTRATE 25 MG TABLET PO SCH ×2 (15:37→20:53)
[2021-08-22 16:12] VITALS: BP 158/89
[2021-08-22] MEDS: ONDANSETRON 4 MG/2 ML VIAL IV PRN (17:36)
[2021-08-22] MEDS: SUCRALFATE 1 G TABLET PO SCH (18:02)
[2021-08-22 20:29] VITALS: BP 142/96
[2021-08-22] MEDS: INSULIN GLARGINE,HUM 300 UNITS/3 ML CARTRIDGE SQ SCH (20:59)
[2021-08-23 00:16] VITALS: BP 111/67
[2021-08-23] MEDS: IV NS 1000 ML 1,000 ML IV SCH ×3 (03:35→16:00)
[2021-08-23 04:43] VITALS: BP 130/70
[2021-08-23] MEDS: SUCRALFATE 1 G TABLET PO SCH ×4 (06:32→20:28)
[2021-08-23] MEDS: ONDANSETRON 4 MG/2 ML VIAL IV PRN (06:35)
[2021-08-23] MEDS: BLOOD SUGAR DIAGNOSTIC 1 EACH STRIP VI SCH ×4 (06:42→20:28)
[2021-08-23 07:16] LABS: HEMATOCRIT 37.2 % (36.7-47.1); MEAN CORPUSCULAR HEMOGLOBIN 31.1 uug (23.8-33.4); MEAN CORPUSCULAR VOLUME 90.8 fL (73.0-96.2); PLATELET COUNT (AUTO) 252 K/uL (152-348)
[2021-08-23 07:17] LABS: CREATININE 1.9 mg/dL (0.6-1.3); POTASSIUM 3.3 mmol/L (3.5-5.1)
[2021-08-23] MEDS: METOPROLOL TARTRATE 25 MG TABLET PO SCH ×2 (08:09→20:28)
[2021-08-23 09:12] LABS: *BILIRUBIN,URIN NEGATIVE (NEGATIVE); *BLOOD, URINE 2+ (NEGATIVE); *CLARITY,URINE CLEAR (CLEAR); *COLOR,URINE YELLOW (YELLOW); *KETONES,URINE 1+ (NEGATIVE); LEUKOCYTE ESTERASE ,URINE NEGATIVE (NEGATIVE); NITRITE, URINE NEGATIVE (NEGATIVE); UGLUCOSE NEGATIVE (NEGATIVE)
[2021-08-23 10:47] LABS: *CREATININE,URINE 82.6 mg/dL (30-125); *URINE TOTAL PROTEIN RANDOM 58.5 mg/dL (<150/24HR)
[2021-08-23 11:37] VITALS: BP 129/87
[2021-08-23 11:48] LABS: WBC,URINE 0-3 /HPF (0-3)
[2021-08-23 11:49] LABS: BACTERIA,URINE NONE SEEN /HPF (NONE SEEN); SQUAMOUS EPITHELIAL CELL,UR FEW /HPF (NONE SEEN)
[2021-08-23] MEDS: INSULIN REGULAR, HUMAN 300 UNIT/3 ML VIAL SQ PRN (16:10)
[2021-08-23 16:25] VITALS: BP 145/92
[2021-08-23 20:00] VITALS: BP 156/95
[2021-08-23] MEDS: INSULIN GLARGINE,HUM 300 UNITS/3 ML CARTRIDGE SQ SCH (20:32)
[2021-08-24] MEDS: IV NS 1000 ML 1,000 ML IV SCH ×2 (00:55→09:41)
[2021-08-24 04:00] VITALS: BP 145/90
[2021-08-24] MEDS: BLOOD SUGAR DIAGNOSTIC 1 EACH STRIP VI SCH ×4 (06:31→16:07)
[2021-08-24 06:35] LABS: HEMATOCRIT 36.3 % (36.7-47.1); MEAN CORPUSCULAR HEMOGLOBIN 31.5 uug (23.8-33.4); PLATELET COUNT (AUTO) 224 K/uL (152-348)
[2021-08-24 06:55] LABS: CREATININE 1.4 mg/dL (0.6-1.3); POTASSIUM 3.5 mmol/L (3.5-5.1)
[2021-08-24] MEDS: SUCRALFATE 1 G TABLET PO SCH ×3 (07:43→16:10)
[2021-08-24] MEDS: METOPROLOL TARTRATE 25 MG TABLET PO SCH (08:06)
[2021-08-24] MEDS ORDERED: AMLODIPINE 5 MG TABLET PO SCH (09:00)
[2021-08-24] MEDS: INSULIN REGULAR, HUMAN 300 UNIT/3 ML VIAL SQ PRN ×2 (11:13→16:08)
[2021-08-24 11:31] VITALS: BP 131/83
[2021-08-24 15:39] VITALS: BP 149/89
[2021-08-24] MEDS ORDERED: Insulin Glargine,Hum SQ (17:45)
[2021-08-24] MEDS ORDERED: METO25TA6 PO (17:45)
[2021-08-24] MEDS ORDERED: AMLO-212 PO (17:45)
[2021-08-24] MEDS ORDERED: INSULIN GLARGINE,HUM 300 UNITS/3 ML CARTRIDGE SQ SCH (21:00)
[2021-08-25] MEDS ORDERED: GLUCERNA SHAKE VANILLA 237 ML CAN PO SCH (09:00)
== END 2021-08-24 17:58 | disposition home or self-care (01) | DRG 469 ==
LOC: ER 13:33 → TELE3 22:27 → MEDSURG3 08-23 11:13
PROVIDERS: ADMIT Family Medicine; ATTEND Family Medicine
PROC: 05H933Z Insertion of Infusion Device into Right Brachial Vein, Percutaneous Approach (ICD-10-PCS; principal; 2021-08-21)
PROC: 05HC33Z Insertion of Infusion Device into Left Basilic Vein, Percutaneous Approach (ICD-10-PCS; 2021-08-24)
DX: N17.0 Acute kidney failure with tubular necrosis (principal); I21.A1 Myocardial infarction type 2; E10.10 Type 1 diabetes mellitus with ketoacidosis without coma; E83.39 Other disorders of phosphorus metabolism; E88.09 Other disorders of plasma-protein metabolism, not elsewhere classified; R17 Unspecified jaundice; I48.0 Paroxysmal atrial fibrillation; E86.0 Dehydration; E10.43 Type 1 diabetes mellitus with diabetic autonomic (poly)neuropathy; K31.84 Gastroparesis; E10.22 Type 1 diabetes mellitus with diabetic chronic kidney disease; E10.65 Type 1 diabetes mellitus with hyperglycemia; N39.0 Urinary tract infection, site not specified; N18.9 Chronic kidney disease, unspecified; Z79.4 Long term (current) use of insulin; R31.29 Other microscopic hematuria; R74.01 Elevation of levels of liver transaminase levels; R03.0 Elevated blood-pressure reading, without diagnosis of hypertension; Z91.14 Patient's other noncompliance with medication regimen; Z91.19 Patient's noncompliance with other medical treatment and regimen; D72.828 Other elevated white blood cell count
CPT/HCPCS: 36415; 71045; 76770; 83605; 83690; 83735; 84100; 84156; 84300; 84484; 85025; 87040; 87086; 93005; 93307; A4663; G0378; J1815; J2405; J3490; J7030